=== PATIENT | female | born 1985 | race Caucasian/White ===

== ENCOUNTER 2022-12-25 14:03 | Outpatient (REF) | payer BC, SELFPAY | END 2022-12-25 14:04 | disposition home or self-care (01) | LOC: LAB 14:03 | PROVIDERS: PCP Family Medicine; Visit Provider Obstetrics & Gynecology | DX: N92.0 Excessive and frequent menstruation with regular cycle (principal) | CPT/HCPCS: 88305 ==

== ENCOUNTER 2022-12-26 09:23 | Outpatient (OUT) | payer BC, SELFPAY ==
--- NOTE | 2022-12-26 09:56 | XR_ITS ---
[address] [address] Patient Name: CRUZ DANIEL MRN: [id number] date: 1985 Sex: F Assigned Patient Location: [facility] Current Patient Location: [facility] Accession/Order Number: [id number] Exam Date: 12/26/2022 10:00 Report Date: 12/26/2022 10:59 At the request of: LALY GARCIA Procedure: XR chest 2V EXAM: Chest x-ray HISTORY: . cigarette use . COMPARISON: . TECHNIQUE: Frontal and lateral chest FINDINGS: Heart and vascularity are unremarkable. Lungs are free of focal infiltrates. There is a pectus deformity of the chest. No acute bony abnormality is appreciated. IMPRESSION: 1. No acute heart or lung disease identified. 2. Pectus deformity of the chest. Electronically authenticated by: MONTY DENISE Date: 12/26/2022 10:59
== END 2022-12-26 09:24 | disposition home or self-care (01) ==
PROVIDERS: PCP Family Medicine
DX: Z01.810 Encounter for preprocedural cardiovascular examination (principal); R10.2 Pelvic and perineal pain; N92.1 Excessive and frequent menstruation with irregular cycle; N93.9 Abnormal uterine and vaginal bleeding, unspecified
CPT/HCPCS: 71046

== ENCOUNTER 2023-01-08 09:00 | Day surgery (SDC) | payer BC, SELFPAY ==
[2022-12-26 10:04] VITALS: BP 102/71; PULSE 68; RESP 14; TEMP 36.6; O2SAT 100; BMI 28.7
[2023-01-08] VITALS (8 sets, daily range): BP systolic 99–107; BP diastolic 54–68; PULSE 58–77; RESP 12–18; TEMP 36.2–36.6; O2SAT 96–100; BMI 28.6
[2023-01-08 09:08] LABS: Basophils Absolute Auto 0.1 10^3/uL (0.0-0.1); Eosinophils Absolute Auto 0.3 10^3/uL (0.0-0.7); Eosinophils Percent Auto 3.4 % (0.9-7.0); Hematocrit 35.2 % (36.0-48.0); Hemoglobin 11.5 g/dL (12.0-16.0); Immature Granulocytes Abs Auto 0.01 10^3/uL (0.00-0.03); Immature Granulocytes Pct Auto 0.1 % (0.0-0.5); Lymphocytes Absolute Auto 2.2 10^3/uL (1.2-3.8); Lymphocytes Percent Auto 29.3 % (20.5-60.0); Mean Corpuscular HGB Conc 32.7 g/dL (29.9-35.2); Mean Corpuscular Hemoglobin 28.8 pg (26.7-34.0); Mean Platelet Volume 10.6 fL (9.5-13.5); Monocytes Absolute Auto 0.7 10^3/uL (0.3-0.8); Monocytes Percent Auto 9.5 % (1.7-12.0); Neutrophils Absolute Auto 4.2 10^3/uL (1.4-6.5); Neutrophils Percent Auto 56.7 % (43.0-75.0); Platelet Count 254 10^3/uL (150-450); Red Cell Distribution Width 14.6 % (11.0-15.0); White Blood Count 7.3 10^3/uL (4.0-11.0)
[2023-01-08 09:27] LABS: HCG Quantitative <1 mIU/mL
[2023-01-08] MEDS: LACTATED RINGER'S SOLUTION 1,000 ML 50 ML IV (09:38)
--- NOTE | 2023-01-08 11:48 | PM.ONB ---
Brief Operative Note Date of procedure: 01/08/23 Pre-op diagnosis: menorrhagia Post-op diagnosis: same Procedure: The patient was taken back to the OR where she was prepped and draped in the normal sterile fashion after being placed in the dorsal lithotomy position, after being placed under general anesthesia without difficulty. The anterior lip was grasped with a single tooth tenaculum. The patient was then gently sounds. The patient was gently sounded using Hegar dilators and the hysteroscope was passed through the cervix into the uterus where both ostia were seen. No gross evidence of polyps, fibroids or malignancy. A weighted speculum was placed in the patient?s vagina, the anterior tip of the cervix was identified and grasped with a single tooth tenaculum. The patient was gently sounded to roughly 10 cm. The cervical length was noted to be 5 cm. The Amanda ablation apparatus was set to approximately 5 in length. This was placed in through the cervix and into the uterus. After the seal was tested, at that time the total ablation of 120 seconds was performed with the Amanda without difficulty. All instruments were removed from the vagina. Anesthesia: MERCEDES Surgeon: Stefano Patel Estimated blood loss (mL): 5 Pathology: none sent Condition: stable Disposition: PACU
--- NOTE | 2023-01-08 11:57 | PC.NURSE ---
PATIENT HAD 16 SYRIAN CATHETER PLACED AND REMOVED PRIOR TO CASE BY WRITING RN. PATIENT HAD BLADDER DRAINED FOR A TOTAL OF 300 ML.
--- NOTE | 2023-01-08 12:14 | PC.NURSE ---
Peripad noted to have small amount bloody drainage; clean pad applied
--- NOTE | 2023-01-08 12:18 | PC.NURSE ---
Peripad dry; hot pack applied over abdominal area over gown
--- NOTE | 2023-01-08 13:03 | PC.NURSE ---
Up to bathroom and voided without difficulty clear yellow urine; peripad dry
== END 2023-01-08 13:05 | disposition home or self-care (01) ==
PROVIDERS: PCP Family Medicine; Visit Provider Obstetrics & Gynecology
PROC: (CPT 58563; principal; 2023-01-08 10:25)
DX: N92.1 Excessive and frequent menstruation with irregular cycle (principal); N93.9 Abnormal uterine and vaginal bleeding, unspecified; R10.2 Pelvic and perineal pain; Z98.51 Tubal ligation status
CPT/HCPCS: 58563; 36415; 84702; 85025; J2704